=== PATIENT | male | born 1945 | race Caucasian/White ===

== ENCOUNTER 2019-08-22 19:10 | Observation (INO) ==
[2019-08-22] MEDS ORDERED: Isovue-370 500 ML BOTTLE IVP ONE (19:31)
[2019-08-22 19:52] LABS: Basophils % 0.3 %; Eosinophils # 0.1 K/mcL (0.0-0.6); Eosinophils % 1.4 %; Hematocrit 38.3 % (37.5-50.1); Hemoglobin 12.7 g/dL (12.9-16.9); Lymphocytes % 35.2 %; Mean Corpuscular HGB Conc 33.2 g/dL (31.6-35.5); Mean Corpuscular Hemoglobin 27.8 pg (28.0-33.3); Mean Corpuscular Volume 83.8 fL (83.0-100.0); Mean Platelet Volume 11.1 fL (9.4-12.4); Monocytes # 0.5 K/mcL (0.0-1.3); Monocytes % 7.8 %; Neutrophils # 3.1 K/mcL (1.6-8.9); Platelet Count 229 K/mcL (140-400); Red Blood Count 4.57 M/mcL (4.19-5.50); Red Cell Distribution Width 14.8 % (11.5-14.5); Segmented Neutrophils % 54.3 %; White Blood Count 5.8 K/mcL (4.3-11.1)
[2019-08-22 20:01] LABS: Prothrombin Time 11.8 Seconds (9.4-12.1)
[2019-08-22 20:04] LABS: Activated Partial Thrombo Time 28.4 Seconds (26.0-36.0)
[2019-08-22 20:10] LABS: BUN/Creatinine Ratio 17 (6-26); Blood Urea Nitrogen 18 mg/dL (8-23); Calcium 9.9 mg/dL (8.6-10.3); Carbon Dioxide 25 mEq/L (23-29); Chloride 101 mEq/L (98-107); Glucose 105 mg/dL (70-105); Osmolality,Calculated 288 (280-300); Potassium 4.6 mEq/L (3.5-5.1); Sodium 138 mEq/L (136-145); eGFR For African Americans > 60 (> 60); eGFR For Non-African Americans > 60 (> 60)
[2019-08-22 20:11] LABS: Albumin 4.1 g/dL (3.5-5.7); Albumin/Globulin Ratio 1.5 (1.1-2.2); Bilirubin,Direct 0.1 mg/dL (0.0-0.2); Bilirubin,Indirect 0.6 mg/dL (0.0-1.0); Bilirubin,Total 0.7 mg/dL (0.3-1.0); Globulin 2.7 g/dL (2.4-3.5); Total Protein 6.8 g/dL (6.4-8.9); Troponin I < 0.03 ng/mL (< 0.04)
[2019-08-22] MEDS ORDERED: *HR* FentaNYL (PF) 100 MCG/2 ML VIAL IVP ONE (21:21)
[2019-08-22] MEDS ORDERED: Aspirin 325 MG TABLET PO ONE (21:43)
[2019-08-22 21:49] LABS: Bilirubin,Urine Negative (Negative); Blood,Urine Negative (Negative); Clarity,Urine Clear (Clear); Color,Urine Yellow (Yellow); Glucose,Urine (UA) Normal (Normal); Ketones,Urine Negative (Negative); Leukocyte Esterase,Urine Negative (Negative); Nitrite,Urine Negative (Negative); Protein,Urine Negative (Neg-Trace); Specific Gravity,Urine > 1.030 (1.010-1.025); Urobilinogen,Urine Normal (Normal)
[2019-08-23] MEDS ORDERED: Naloxone 0.4 MG/ML INJ IVP PRN (04:25)
[2019-08-23] MEDS ORDERED: 0.9 % Sodium Chloride 1,000 ML IVC ONE (06:24)
[2019-08-23 09:21] LABS: Hematocrit 35.3 % (37.5-50.1); Hemoglobin 11.7 g/dL (12.9-16.9); Mean Corpuscular HGB Conc 33.1 g/dL (31.6-35.5); Mean Corpuscular Hemoglobin 28.1 pg (28.0-33.3); Mean Corpuscular Volume 84.9 fL (83.0-100.0); Mean Platelet Volume 11.2 fL (9.4-12.4); Platelet Count 181 K/mcL (140-400); Red Blood Count 4.16 M/mcL (4.19-5.50); Red Cell Distribution Width 14.8 % (11.5-14.5); White Blood Count 5.4 K/mcL (4.3-11.1)
[2019-08-23 09:41] LABS: BUN/Creatinine Ratio 18 (6-26); Blood Urea Nitrogen 16 mg/dL (8-23); Calcium 8.8 mg/dL (8.6-10.3); Carbon Dioxide 27 mEq/L (23-29); Chloride 105 mEq/L (98-107); Glucose 100 mg/dL (70-105); Osmolality,Calculated 287 (280-300); Potassium 3.6 mEq/L (3.5-5.1); Sodium 138 mEq/L (136-145); eGFR For African Americans > 60 (> 60); eGFR For Non-African Americans > 60 (> 60)
[2019-08-23] MEDS ORDERED: GI Cocktail 40 ML EACH PO ONE (09:47)
[2019-08-23] MEDS: DilTIAZem CD (24hr) 240 MG CAP.ER.24H PO SCH (10:18)
[2019-08-23] MEDS: Aspirin Enteric Coated 81 MG Tablet PO SCH (10:23)
[2019-08-23] MEDS ORDERED: traZODone 50 MG TABLET PO SCH (21:00)
[2019-08-23] MEDS: lisinopriL 20 MG TABLET PO SCH (22:49)
[2019-08-24] MEDS: lisinopriL 20 MG TABLET PO SCH ×2 (09:11→20:15)
[2019-08-24] MEDS: Aspirin Enteric Coated 81 MG Tablet PO SCH (09:11)
[2019-08-24] MEDS: DilTIAZem CD (24hr) 240 MG CAP.ER.24H PO SCH (09:11)
[2019-08-24 13:11] LABS: Adenovirus Not Detected (Not Detect); Bordetella Pertussis Not Detected (Not Detect); Chlamydophila pneumoniae Not Detected (Not Detect); Coronavirus 229E Not Detected (Not Detect); Coronavirus HKU1 Not Detected (Not Detect); Coronavirus NL63 Not Detected (Not Detect); Coronavirus OC43 Not Detected (Not Detect); Human Metapneumovirus Not Detected (Not Detect); Human Rhinovirus/Enterovirus Not Detected (Not Detect); Influenza B Not Detected (Not Detect); Mycoplasma pneumoniae Not Detected (Not Detect); Parainfluenza Virus 1 Not Detected (Not Detect); Parainfluenza Virus 2 Not Detected (Not Detect); Parainfluenza Virus 3 Not Detected (Not Detect); Parainfluenza Virus 4 Not Detected (Not Detect); Respiratory Syncytial Virus Not Detected (Not Detect)
[2019-08-24 13:14] LABS: Influenza A Subtype 2009 H1 DETECTED (Not Detect)
[2019-08-24] MEDS: Acetaminophen 325 MG TABLET PO PRN (20:15)
[2019-08-25] MEDS: lisinopriL 20 MG TABLET PO SCH (09:03)
[2019-08-25] MEDS: DilTIAZem CD (24hr) 240 MG CAP.ER.24H PO SCH (09:03)
[2019-08-25] MEDS: Aspirin Enteric Coated 81 MG Tablet PO SCH (09:03)
[2019-08-25] MEDS: Acetaminophen 325 MG TABLET PO PRN (09:13)
[2019-08-25 11:19] LABS: Hematocrit 37.9 % (37.5-50.1); Hemoglobin 12.8 g/dL (12.9-16.9); Mean Corpuscular HGB Conc 33.8 g/dL (31.6-35.5); Mean Corpuscular Hemoglobin 28.4 pg (28.0-33.3); Mean Platelet Volume 11.2 fL (9.4-12.4); Platelet Count 222 K/mcL (140-400); Red Blood Count 4.51 M/mcL (4.19-5.50); Red Cell Distribution Width 14.9 % (11.5-14.5); White Blood Count 7.8 K/mcL (4.3-11.1)
[2019-08-25 11:23] LABS: Prothrombin Time 11.7 Seconds (9.4-12.1)
[2019-08-25 11:39] LABS: Alanine Aminotransferase 11 Units/L (7-52); Albumin 3.8 g/dL (3.5-5.7); Albumin/Globulin Ratio 1.5 (1.1-2.2); Alkaline Phosphatase 59 Units/L (34-104); Aspartate Amino Transferase 14 Units/L (13-39); BUN/Creatinine Ratio 19 (6-26); Bilirubin,Total 0.5 mg/dL (0.3-1.0); Blood Urea Nitrogen 17 mg/dL (8-23); Calcium 9.5 mg/dL (8.6-10.3); Carbon Dioxide 28 mEq/L (23-29); Chloride 105 mEq/L (98-107); Globulin 2.6 g/dL (2.4-3.5); Glucose 112 mg/dL (70-105); Osmolality,Calculated 288 (280-300); Potassium 4.1 mEq/L (3.5-5.1); Sodium 138 mEq/L (136-145); Total Protein 6.4 g/dL (6.4-8.9); eGFR For African Americans > 60 (> 60); eGFR For Non-African Americans > 60 (> 60)
[2019-08-25 15:25] VITALS: BP 102/72
== END 2019-08-25 15:55 | disposition home or self-care (01) ==
LOC: 3ANU 19:10 → EMEROOARM 19:10 → SUATTDRO 22:00 → 3ANU 22:30
PROVIDERS: ADMIT Internal Medicine; ATTEND Internal Medicine

== ENCOUNTER 2020-11-20 14:48 | Observation (INO) ==
[2020-11-20 16:32] LABS: Basophils % 0.3 %; Eosinophils # 0.1 K/mcL (0.0-0.6); Hematocrit 35.9 % (37.5-50.1); Hemoglobin 11.6 g/dL (12.9-16.9); Immature Granulocytes % 0.5 % (0-4); Lymphocytes # 1.2 K/mcL (0.6-4.6); Lymphocytes % 18.5 %; Mean Corpuscular HGB Conc 32.3 g/dL (31.6-35.5); Mean Corpuscular Hemoglobin 26.1 pg (28.0-33.3); Mean Corpuscular Volume 80.9 fL (83.0-100.0); Mean Platelet Volume 12.3 fL (9.4-12.4); Monocytes # 0.5 K/mcL (0.0-1.3); Monocytes % 7.9 %; Neutrophils # 4.6 K/mcL (1.6-8.9); Platelet Count 149 K/mcL (140-400); Red Blood Count 4.44 M/mcL (4.19-5.50); Red Cell Distribution Width 15.2 % (11.5-14.5); Segmented Neutrophils % 70.8 %; White Blood Count 6.6 K/mcL (4.3-11.1)
[2020-11-20 16:56] LABS: Troponin I < 0.03 ng/mL (< 0.04)
[2020-11-20 17:10] LABS: BUN/Creatinine Ratio 18 (6-26); Blood Urea Nitrogen 19 mg/dL (8-23); Calcium 9.2 mg/dL (8.6-10.3); Carbon Dioxide 25 mEq/L (23-29); Chloride 107 mEq/L (98-107); Glucose 152 mg/dL (70-105); Osmolality,Calculated 295 (280-300); Potassium 3.9 mEq/L (3.5-5.1); Sodium 140 mEq/L (136-145); eGFR For African Americans > 60 (> 60); eGFR For Non-African Americans > 60 (> 60)
[2020-11-20] MEDS ORDERED: Isovue-370 500 ML BOTTLE IVP ONE ×2 (17:20→18:13)
[2020-11-20] MEDS ORDERED: Aspirin 81 MG TAB.CHEW PO ONE (19:35)
[2020-11-20] MEDS ORDERED: Naloxone 0.4 MG/ML INJ IVP PRN (23:23)
[2020-11-20] MEDS ORDERED: Acetaminophen 325 MG TABLET PO PRN (23:23)
[2020-11-20] MEDS ORDERED: Nitroglycerin 0.4 MG TAB.SUBL SL PRN (23:28)
[2020-11-20] MEDS ORDERED: Morphine Sulfate 2 MG/ML SYRINGE IVP ONE (23:29)
[2020-11-20] MEDS ORDERED: Perflutren Lipid Microsphere 1.3 ML in 0.9 % Sodium Chloride 8.7 ML IVP PRN (23:45)
[2020-11-21 01:03] LABS: Hemoglobin 11.4 g/dL (12.9-16.9)
[2020-11-21 01:05] LABS: Hematocrit 35.9 % (37.5-50.1); Immature Platelets 9.3 % (1.1-6.1); Mean Corpuscular HGB Conc 31.8 g/dL (31.6-35.5); Mean Corpuscular Hemoglobin 25.5 pg (28.0-33.3); Mean Corpuscular Volume 80.3 fL (83.0-100.0); Red Blood Count 4.47 M/mcL (4.19-5.50); White Blood Count 9.5 K/mcL (4.3-11.1)
[2020-11-21 01:21] LABS: BUN/Creatinine Ratio 19 (6-26); Blood Urea Nitrogen 18 mg/dL (8-23); Calcium 8.9 mg/dL (8.6-10.3); Carbon Dioxide 25 mEq/L (23-29); Chloride 107 mEq/L (98-107); Chol/HDL Ratio 4.3 (0-4.9); Cholesterol 173 mg/dL (< 200); Glucose 151 mg/dL (70-105); HDL Cholesterol 40 mg/dL (40-59); LDL Cholesterol,Calculated 104 mg/dL (< 100); Magnesium 2.1 mg/dL (1.6-2.6); Osmolality,Calculated 293 (280-300); Potassium 3.6 mEq/L (3.5-5.1); Sodium 139 mEq/L (136-145); Triglycerides 144 mg/dL (< 150); eGFR For African Americans > 60 (> 60); eGFR For Non-African Americans > 60 (> 60)
[2020-11-21 01:31] LABS: Thyroid Stimulating Hormone 2.512 mcIU/mL (0.340-5.600)
[2020-11-21 01:43] LABS: Folate 11.4 ng/mL (3.0-16.0)
[2020-11-21 02:11] LABS: Estimated Average Glucose 180 mg/dl; Hemoglobin A1C 7.9 %
[2020-11-21] MEDS: *HR* Heparin 5,000 UNIT/ML VIAL SQ SCH ×3 (05:09→20:11)
[2020-11-21] MEDS ORDERED: Regadenoson 0.4 MG/5 ML SYRINGE IVP ONE (06:05)
[2020-11-21] MEDS: Aspirin Enteric Coated 81 MG Tablet PO SCH (09:00)
[2020-11-21] MEDS: DilTIAZem CD (24hr) 240 MG CAP.ER.24H PO SCH (09:00)
[2020-11-21] MEDS: hydroCHLOROthiazide 25 MG TABLET PO SCH (09:00)
[2020-11-21] MEDS: Cyanocobalamin (B-12) 1,000 MCG TABLET PO SCH (09:00)
[2020-11-21] MEDS ORDERED: lisinopriL 20 MG TABLET PO SCH (12:00)
[2020-11-21] MEDS: Metoprolol XL (24 HR) Succ 25 MG TAB.ER.24H PO SCH (13:17)
[2020-11-21] MEDS ORDERED: Loratadine 10 MG TABLET PO SCH (18:00)
[2020-11-22] MEDS: *HR* Heparin 5,000 UNIT/ML VIAL SQ SCH (05:06)
[2020-11-22 05:41] LABS: Hematocrit 37.6 % (37.5-50.1); Hemoglobin 12.4 g/dL (12.9-16.9); Mean Corpuscular Hemoglobin 26.5 pg (28.0-33.3); Mean Corpuscular Volume 80.3 fL (83.0-100.0); Mean Platelet Volume 12.3 fL (9.4-12.4); Platelet Count 141 K/mcL (140-400); Red Blood Count 4.68 M/mcL (4.19-5.50); Red Cell Distribution Width 15.2 % (11.5-14.5); White Blood Count 8.2 K/mcL (4.3-11.1)
[2020-11-22 06:01] LABS: BUN/Creatinine Ratio 24 (6-26); Blood Urea Nitrogen 24 mg/dL (8-23); Calcium 9.4 mg/dL (8.6-10.3); Carbon Dioxide 25 mEq/L (23-29); Chloride 104 mEq/L (98-107); Glucose 138 mg/dL (70-105); Osmolality,Calculated 290 (280-300); Potassium 3.7 mEq/L (3.5-5.1); Sodium 137 mEq/L (136-145); eGFR For African Americans > 60 (> 60); eGFR For Non-African Americans > 60 (> 60)
[2020-11-22 06:57] VITALS: BP 121/63
[2020-11-22] MEDS: Aspirin Enteric Coated 81 MG Tablet PO SCH (08:09)
[2020-11-22] MEDS: Cyanocobalamin (B-12) 1,000 MCG TABLET PO SCH (08:09)
[2020-11-22] MEDS: Metoprolol XL (24 HR) Succ 25 MG TAB.ER.24H PO SCH (08:09)
[2020-11-22] MEDS: hydroCHLOROthiazide 25 MG TABLET PO SCH (08:09)
[2020-11-22] MEDS: DilTIAZem CD (24hr) 240 MG CAP.ER.24H PO SCH (08:10)
== END 2020-11-22 10:00 | disposition home or self-care (01) ==
LOC: EMEROOARM 14:48 → 3BNU 14:48 → SUATTDRO 20:06 → 3BNU 20:56
PROVIDERS: ADMIT Student in an Organized Health Care Education/Training Program; ATTEND Internal Medicine

== ENCOUNTER 2022-03-21 08:16 | Observation (INO) ==
[2022-03-21] MEDS ORDERED: Iopamidol - 370 500 ML MLS IVP ONE (09:05)
[2022-03-21 09:25] LABS: Hematocrit 40.3 % (37.5-50.1); Hemoglobin 13.4 g/dL (12.9-16.9); Mean Corpuscular HGB Conc 33.3 g/dL (31.6-35.5); Mean Corpuscular Hemoglobin 27.2 pg (28.0-33.3); Mean Corpuscular Volume 81.7 fL (83.0-100.0); Mean Platelet Volume 12.3 fL (9.4-12.4); Platelet Count 182 K/mcL (140-400); Red Blood Count 4.93 M/mcL (4.19-5.50); Red Cell Distribution Width 13.8 % (11.5-14.5); White Blood Count 9.8 K/mcL (4.3-11.1)
[2022-03-21 09:45] LABS: BUN/Creatinine Ratio 24 (6-26); Blood Urea Nitrogen 40 mg/dL (8-23); Calcium 9.6 mg/dL (8.6-10.3); Carbon Dioxide 26 mEq/L (23-29); Chloride 104 mEq/L (98-107); Glucose 124 mg/dL (70-105); Osmolality,Calculated 297 (280-300); Potassium 3.9 mEq/L (3.5-5.1); Sodium 138 mEq/L (136-145); Troponin I < 0.03 ng/mL (< 0.04)
[2022-03-21] MEDS ORDERED: 0.9 % Sodium Chloride 1,000 ML IVC ONE (10:08)
[2022-03-21] MEDS ORDERED: Naloxone 0.4 MG/ML INJ IVP PRN (11:01)
[2022-03-21] MEDS ORDERED: Ondansetron 4 MG/2 ML VIAL IVP PRN (11:01)
[2022-03-21] MEDS ORDERED: Acetaminophen 325 MG TABLET PO PRN (11:03)
[2022-03-21] MEDS ORDERED: 0.9 % Sodium Chloride 1,000 ML IVC SCH (11:15)
[2022-03-21] MEDS: Azithromycin 500 MG in D5% in Water 250 ML IVPB SCH (11:44)
[2022-03-21] MEDS: Loratadine 10 MG TABLET PO SCH (11:45)
[2022-03-21] MEDS: Aspirin Enteric Coated 81 MG Tablet PO SCH (11:45)
[2022-03-21] MEDS: Ipratropium 1 PUFF INHALER IH SCH ×4 (14:56→23:53)
[2022-03-21] MEDS: *HR* Heparin 5,000 UNIT/ML VIAL SQ SCH (17:05)
[2022-03-22 03:46] VITALS: BP 131/68; PULSE 87; TEMP 97.5; O2SAT 97
[2022-03-22 04:28] LABS: Mean Corpuscular HGB Conc 33.7 g/dL (31.6-35.5); Mean Corpuscular Hemoglobin 27.8 pg (28.0-33.3); Mean Corpuscular Volume 82.5 fL (83.0-100.0); Mean Platelet Volume 11.8 fL (9.4-12.4); Platelet Count 152 K/mcL (140-400); Red Blood Count 4.24 M/mcL (4.19-5.50); White Blood Count 7.1 K/mcL (4.3-11.1)
[2022-03-22 04:29] LABS: Estimated Average Glucose 160 mg/dl; Hemoglobin 11.8 g/dL (12.9-16.9); Hemoglobin A1C 7.2 %
[2022-03-22] MEDS: Ipratropium 1 PUFF INHALER IH SCH ×3 (04:33→11:13)
[2022-03-22 04:35] LABS: INR 1.1; Prothrombin Time 11.9 Seconds (9.4-12.1)
[2022-03-22 04:49] LABS: Alanine Aminotransferase 10 Units/L (7-52); Albumin 3.5 g/dL (3.5-5.7); Albumin/Globulin Ratio 1.5 (1.1-2.2); Alkaline Phosphatase 60 Units/L (34-104); Aspartate Amino Transferase 13 Units/L (13-39); BUN/Creatinine Ratio 21 (6-26); Bilirubin,Total 0.5 mg/dL (0.3-1.0); Blood Urea Nitrogen 23 mg/dL (8-23); Calcium 8.9 mg/dL (8.6-10.3); Carbon Dioxide 24 mEq/L (23-29); Chloride 107 mEq/L (98-107); Chol/HDL Ratio 3.6 (0-4.9); Cholesterol 159 mg/dL (< 200); Globulin 2.3 g/dL (2.4-3.5); Glucose 90 mg/dL (70-105); HDL Cholesterol 44 mg/dL (40-59); LDL Cholesterol,Calculated 99 mg/dL (< 100); Osmolality,Calculated 287 (280-300); Sodium 137 mEq/L (136-145); Total Protein 5.8 g/dL (6.4-8.9); Triglycerides 82 mg/dL (< 150)
[2022-03-22 04:50] LABS: Troponin I < 0.03 ng/mL (< 0.04)
[2022-03-22] MEDS: *HR* Heparin 5,000 UNIT/ML VIAL SQ SCH (05:32)
[2022-03-22] MEDS ORDERED: Dextrose Gel 15 GM/37.5 ML TUBE PO PRN ×2 (07:39)
[2022-03-22] MEDS ORDERED: D5% in Water 1,000 ML IVC PRN (07:39)
[2022-03-22] MEDS ORDERED: *HR* Dextrose 50 % in Water (Syg) 50 ML SYRINGE IVP PRN (07:39)
[2022-03-22] MEDS ORDERED: Insulin LISPRO 300 UNITS/3 ML VIAL SUBQ SCH (07:45)
[2022-03-22] MEDS: Loratadine 10 MG TABLET PO SCH (07:57)
[2022-03-22] MEDS: Aspirin Enteric Coated 81 MG Tablet PO SCH (07:57)
[2022-03-22] MEDS: Azithromycin 500 MG in D5% in Water 250 ML IVPB SCH (11:30)
[2022-03-22] MEDS ORDERED: Famotidine 20 MG TABLET PO SCH (21:00)
== END 2022-03-22 12:30 | disposition home or self-care (01) ==
LOC: EMEROOARM 08:16 → 3BNU 08:16 → SUATTDRO 13:06 → 3BNU 14:45
PROVIDERS: ADMIT General Practice; ATTEND Internal Medicine